=== PATIENT | female | born 1995 | race Caucasian/White ===

== ENCOUNTER 2016-07-09 20:47 | Emergency (ER) | payer MEDICAID, OTHER ==
[2016-07-09 20:54] VITALS: BP 137/81
[2016-07-09] MEDS ORDERED: Promethazine 25 MG/ML SDV IM ONE (21:32)
[2016-07-09] MEDS ORDERED: Ketorolac 60 MG/2 ML SDV IM ONE (21:33)
[2016-07-09] MEDS ORDERED: Ketorolac 30 MG/ML SDV IVPUSH ONE ×2 (21:41)
[2016-07-09] MEDS ORDERED: Ondansetron 4 MG/2 ML SDV IVPUSH ONE (21:41)
[2016-07-09] MEDS ORDERED: Sodium Chloride 0.9% 1,000 ML IV SCH (21:45)
[2016-07-09] MEDS: Sodium Chloride 0.9% 10 ML Syringe FLUSH PRN ×2 (21:47→22:43)
[2016-07-09 21:56] LABS: CHLORIDE,CL 104 mmol/L (98-107); SODIUM,NA 143 mmol/L (136-145)
[2016-07-09] MEDS ORDERED: SUMAtriptan 6 MG/0.5 ML SDV SUBCUT ONE (22:14)
--- NOTE | 2016-07-09 22:20 | EDM.PDOC ---
ED HPI GENERAL MEDICAL PROBLEM - General Chief Complaint: General Stated Complaint: migraine RENEE Time Seen by Provider: 07/09/16 21:32 Source of Information: Reports: Patient History Limitations: Reports: No Limitations - History of Present Illness INITIAL COMMENTS - FREE TEXT/NARRATIVE: Patient brought in by her mother to ER to be seen for migraine. Headache present for two days. Started initially behind right eye. No behind both eyes/ bilateral frontal headache. No report of aura. Has had issues with migraine headaches for at least a year. No formal workup for the headaches. Had PRN medication but ran out of it and does not recall name. Reports several episodes emesis yesterday and today. Some photophobia. No other complaints. Recent increase stress as she moved into her own apartment and split up with boyfriend. They share custody of a child. No specific headache triggers per patient. Right Eye Pain Score (Numeric/FACES): 5 - Related Data Allergies Allergy/AdvReac Type Severity Reaction Status Date / Time No Known Allergies Allergy Verified 07/09/16 20:53 Home Meds: Home Meds . [No Known Home Meds] 07/09/16 [History] Past Medical History Neurological History: Reports: Migraines Psychiatric History: Reports: Anxiety, Depression - Past Surgical History HEENT Surgical History: Reports: Oral Surgery Female Surgical History: Reports: Section Social & Family History - Tobacco Use Smoking Status *Q: Current Every Day Smoker Years of Tobacco use: 2 Packs/Tins Daily: 0.5 ED ROS GENERAL - Review of Systems Review Of Systems: See Below Constitutional: Reports: Decreased Appetite. Denies: Fever, Chills, Weakness, Night Sweats, Diaphoresis HEENT: Reports: No Symptoms. Denies: Vertigo, Vision Change Respiratory: Reports: No Symptoms Cardiovascular: Reports: No Symptoms GI/Abdominal: Reports: Nausea, Vomiting. Denies: Abdominal Pain, Constipation, Diarrhea : Reports: No Symptoms Musculoskeletal: Reports: No Symptoms Skin: Reports: No Symptoms Neurological: Reports: Headache. Denies: Confusion, Dizziness, Numbness, Paresthesia, Seizure, Trouble Speaking, Difficulty Walking, Weakness, Change in Speech, Gait Disturbance Psychiatric: Reports: No Symptoms (no acute changes. ) ED EXAM, GENERAL - Physical Exam Exam: See Below Exam Limited By: No Limitations General Appearance: Alert, WD/WN, Mild Distress, Other (tearful at times) Eye Exam: Bilateral Eye: EOMI, PERRL Ears: Normal External Exam, Hearing Grossly Normal, Normal TMs Nose: Normal Inspection Throat/Mouth: Normal Inspection, Normal Voice, No Airway Compromise Head: Atraumatic, Normocephalic, Other (palpation of head revealed no 'bump'. Bump patient pointed to feels like normal skull contour. No abnormality in skin noted. ) Neck: Normal Inspection, Supple, Non-Tender, Full Range of Motion Respiratory/Chest: No Respiratory Distress, Lungs Clear Cardiovascular: Normal Peripheral Pulses, Regular Rate, Rhythm, No Edema, No Murmur GI/Abdominal: Normal Bowel Sounds, Soft, Non-Tender Back Exam: Normal Inspection Extremities: Normal Inspection, Normal Capillary Refill Neurological: Alert, Oriented, Normal Cognition, Normal Gait, No Motor/Sensory Deficits Psychiatric: Normal Affect, Normal Mood Skin Exam: Warm, Dry, Intact, Normal Color Course - Vital Signs Last Recorded V/S: Last Vital Signs Temp 37.0 C 07/09/16 20:50 Pulse 78 07/09/16 20:50 Resp 16 07/09/16 20:50 BP 137/81 07/09/16 20:50 Pulse Ox 100 07/09/16 20:50 - Orders/Labs/Meds Orders: Active Orders 24 hr Category Date Time Status Peripheral IV Care [RC] . DIRECTED Care 07/09/16 21:18 Active Head wo Cont [CT] Stat Exams 07/09/16 21:01 Taken Sodium Chloride 0.9% [Normal Saline] 1,000 ml Med 07/09/16 21:45 Active IV ASDIRECTED Sodium Chloride 0.9% [Saline Flush] Med 07/09/16 21:18 Active 10 ml FLUSH ASDIRECTED PRN Peripheral IV Insertion Adult [OM.PC] Routine Oth 07/09/16 21:18 Ordered Medication Orders Sodium Chloride (Normal Saline) 1,000 mls @ 999 mls/hr IV ASDIRECTED NORRIS Last Admin: 07/09/16 21:45 Dose: 999 mls/hr Sodium Chloride (Saline Flush) 10 ml FLUSH ASDIRECTED PRN PRN Reason: Keep Vein Open Last Admin: 07/09/16 22:43 Dose: 10 ml Admin: 07/09/16 21:47 Dose: 10 ml Labs: Laboratory Tests 07/09/16 07/09/16 Range/Units 21:35 21:35 WBC 7.1 (4.0-10.2) K/uL RBC 4.85 (3.77-5.09) M/uL Hgb 13.3 (11.7-15.5) g/dL Hct 39.9 (34.0-46.0) % MCV 82.3 L (84.0-98.0) fL MCH 27.4 L (28.2-33.3) pg MCHC 33.3 (31.7-36.0) g/dL RDW 14.4 H (11.2-14.1) % Plt Count 172 (150-350) K/uL Neut % (Auto) 61.8 (45.0-80.0) % Lymph % (Auto) 29.3 (10.0-50.0) % Giles % (Auto) 7.0 (2.0-14.0) % Eos % (Auto) 1.3 (0.0-5.0) % Baso % (Auto) 0.6 (0.0-2.0) % Neut # (Auto) 4.41 (1.40-7.00) K/uL Lymph # (Auto) 2.09 (0.50-3.50) K/uL Giles # (Auto) 0.50 (0.00-1.00) K/uL Eos # (Auto) 0.09 (0.00-0.50) K/uL Baso # (Auto) 0.04 (0.00-0.20) K/uL Sodium 143 (136-145) mmol/L Potassium 3.9 (3.5-5.1) mmol/L Chloride 104 (98-107) mmol/L Carbon Dioxide 28.5 (21.0-32.0) mmol/L BUN 10 (7-18) mg/dL Creatinine 0.77 (0.51-1.17) mg/dL Est Cr Clr Drug Dosing 107.65 mL/min Estimated GFR (MDRD) > 60 mL/min Glucose 91 (74-106) mg/dL Calcium 9.3 (8.5-10.1) mg/dL Total Bilirubin 0.4 (0.2-1.0) mg/dL AST 16 (15-37) U/L ALT 16 (12-78) U/L Alkaline Phosphatase 89 (46-116) IU/L Total Protein 8.2 (6.4-8.2) g/dL Albumin 4.7 (3.4-5.0) g/dL Meds: Medications Generic Name Dose Route Start Last Admin Trade Name Freq PRN Reason Stop Dose Admin Sodium Chloride 1,000 mls @ 999 mls/hr 07/09/16 21:45 07/09/16 21:45 Normal Saline IV 999 mls/hr ASDIRECTED NORRIS Administration Sodium Chloride 10 ml 07/09/16 21:18 07/09/16 22:43 Saline Flush FLUSH 10 ml ASDIRECTED PRN Administration Keep Vein Open Discontinued Medications Generic Name Dose Route Start Last Admin Trade Name Freq PRN Reason Stop Dose Admin Diphenhydramine HCl 50 mg 07/09/16 22:34 07/09/16 22:43 Benadryl IVPUSH 07/09/16 22:35 50 mg ONETIME ONE Administration Ketorolac Tromethamine 60 mg 07/09/16 21:33 07/09/16 21:42 Toradol IM 07/09/16 21:34 Not Given ONETIME ONE Ketorolac Tromethamine 30 mg 07/09/16 21:41 07/09/16 21:42 Toradol IVPUSH 07/09/16 21:42 Not Given ONETIME ONE Ketorolac Tromethamine 30 mg 07/09/16 21:41 07/09/16 21:46 Toradol IVPUSH 07/09/16 21:42 30 mg ONETIME ONE Administration Ondansetron HCl 4 mg 07/09/16 21:41 07/09/16 21:46 Zofran IVPUSH 07/09/16 21:42 4 mg ONETIME ONE Administration Promethazine HCl 25 mg 07/09/16 21:32 07/09/16 21:50 Phenergan IM 07/09/16 21:33 25 mg ONETIME ONE Administration Sumatriptan Succinate 6 mg 07/09/16 22:14 07/09/16 22:30 Imitrex SUBCUT 07/09/16 22:15 6 mg ONETIME ONE Administration - Re-Assessments/Exams Free Text/Narrative Re-Assessment/Exam: 07/09/16 22:23 IV normal saline bolus, Zofran, Phenergan, Toradol given. Imitrex added. Patient 's headache improved from 6 to 4. Nausea improved. Extensive time spent discussing possible headache triggers and how to make lifestyle changes to try to identify triggers. Free Text/Narrative Re-Assessment/Exam: 07/09/16 23:14 Significantly improved. Will discharge home. Departure - Departure Time of Disposition: 23:12 Disposition: Home, Self-Care 01 Condition: good Clinical Impression: Migraine Qualifiers: Migraine type: unspecified Status migrainosus presence: without status migrainosus Intractability: not intractable Qualified Code(s): G43.909 - Migraine, unspecified, not intractable, without status migrainosus - Discharge Information Referrals: Sagar Maloney PA [Primary Care Provider] - Forms: ED Department Discharge Additional Instructions: Highly recommend dietary changes as discussed. Follow up with your primary provider as needed. Home, rest, drink plenty of fluids (water!) - My Orders Last 24 Hours: My Active Orders 07/09/16 21:01 Head wo Cont [CT] Stat 07/09/16 21:18 Peripheral IV Care [RC] . DIRECTED Sodium Chloride 0.9% [Saline Flush] 10 ml FLUSH ASDIRECTED PRN Peripheral IV Insertion Adult [OM.PC] Routine 07/09/16 21:45 Sodium Chloride 0.9% [Normal Saline] 1,000 ml IV ASDIRECTED - Assessment/Plan Last 24 Hours: My Active Orders 07/09/16 21:01 Head wo Cont [CT] Stat 07/09/16 21:18 Peripheral IV Care [RC] . DIRECTED Sodium Chloride 0.9% [Saline Flush] 10 ml FLUSH ASDIRECTED PRN Peripheral IV Insertion Adult [OM.PC] Routine 07/09/16 21:45 Sodium Chloride 0.9% [Normal Saline] 1,000 ml IV ASDIRECTED
[2016-07-09] MEDS ORDERED: diphenhydrAMINE 50 MG/ML SDV IVPUSH ONE (22:34)
== END 2016-07-09 23:35 | disposition home or self-care (01) ==
LOC: LL.ED 20:47
DX: G43.909 Migraine, unspecified, not intractable, without status migrainosus (principal); F41.9 Anxiety disorder, unspecified; F32.9 Major depressive disorder, single episode, unspecified; F17.210 Nicotine dependence, cigarettes, uncomplicated; Z98.890 Other specified postprocedural states
CPT/HCPCS: 36415; 70450; 80053; 85025; 96361; 96372; 96374; 96375; 99284; J1200; J1885; J2405; J2550; J3030; J7030; J7050